=== PATIENT | female | born 1990 | race Caucasian/White ===

== ENCOUNTER 2019-09-21 21:53 | Emergency (ER) | payer SELFPAY ==
[~2019-09-21] VITALS: Ht 162.6 cm; Wt 54.4 kg
[2019-09-21 22:10] VITALS: BP 132/80
--- NOTE | 2019-09-21 22:10 | NUR ---
ED Nurse Note: Patient brought in by [employer] d/t medical clearance, patient aao x 4 and ambulatory, restless and uncooperative. Patient stable upon assessment. unable to obtain further information d/t patient declines to cooperate.
--- NOTE | 2019-09-21 22:14 | NUR ---
ED Nurse Note: ERMD at bedside.
[2019-09-21 22:15] VITALS: BP 128/82
--- NOTE | 2019-09-21 22:15 | NUR ---
ER DISCHARGE NOTE: Patient is medically cleared to be discharged per ERMD, pt is aox4, on room air, with stable vital signs. [employer] officer was given dc instructions, verbalized understanding. pt wheeled out in wheelchair accompanied by [employer] officers. [employer] took all belongings, pt stable upon discharge.
--- NOTE | 2019-09-21 22:19 | Emergency Room Report ---
History of Present Illness General Chief Complaint: Medical Clearance Source: Patient, Law Enforcement Present Illness HPI This is an approximately 29-year-old female brought in by police for medical clearance. She is not cooperative and would not give her name. She complaining of knee pain and internal pain. Patient refused to give her name or being cooperative. She is cursing and yelling obscenities to motorcycle police , nursing staff and myself. She walked without any problem. She was in the process of being arrested and she wrapped itself around the motorcycle police and try to bite that officer. In the process she was tackled to the ground and handcuffed. Allergies: Coded Allergies: PENICILLINS (Verified Allergy, Unknown, 09/21/19) COVID-19 Screening Contact w/high risk pt: No Recent Travel to affected area: No Experienced COVID-19 symptoms?: No Patient History Past Medical History: see triage record, old chart reviewed, unable to obtain Past Surgical History: unable to obtain Pertinent Family History: unable to obtain Last Menstrual Period: UNK Now: No Immunizations: other Reviewed Nursing Documentation: PMH: Agreed; PSxH: Agreed Nursing Documentation-PMH Past Medical History Deferred: Pt Cognitively Impaired Review of Systems Eye: Denies: eye pain, blurred vision ENT: Denies: ear pain, nose congestion, throat swelling Respiratory: Denies: cough, shortness of breath Cardiovascular: Denies: chest pain, palpitations Gastrointestinal: Denies: abdominal pain, diarrhea, nausea, vomiting Musculoskeletal: Denies: back pain, joint pain Skin: Denies: rash Neurological: Denies: headache, numbness Endocrine: Denies: increased thirst, increased urine Hematologic/Lymphatic: Denies: easy bruising All Other Systems: negative except mentioned in HPI Physical Exam Vital Signs Date Time Temp Pulse Resp B/P (MAP) Pulse Ox O2 Delivery O2 Flow Rate FiO2 09/21/19 22:00 97.9 86 18 133/76 (95) 99 Room Air Vitals normal Sp02 EP Interpretation: reviewed, normal General Appearance: well appearing, no apparent distress, alert Head: normocephalic, atraumatic Eyes: bilateral eye PERRL, bilateral eye EOMI ENT: hearing grossly normal, normal pharynx Neck: full range of motion, supple, no meningismus Respiratory: chest non-tender, lungs clear, normal breath sounds Cardiovascular #1: regular rate, rhythm, no murmur Gastrointestinal: normal bowel sounds, non tender, no mass, no organomegaly, no bruit, non-distended Musculoskeletal: back normal, normal range of motion, gait/station normal, other - No abrasions on her knees Psychiatric: mood/affect normal Medical Decision Making Diagnostic Impression: Primary Impression: Behavior disorder Additional Impression: Examination, medicolegal reason ER Course Patient here for medical clearance. She is belligerent and not cooperative. There is no evidence of any injury. Will discharge to motorcycle police. Last Vital Signs Date Time Temp Pulse Resp B/P (MAP) Pulse Ox O2 Delivery O2 Flow Rate FiO2 09/21/19 22:10 90 18 Room Air 09/21/19 22:10 97.9 132/80 99 Status: unchanged Disposition: LAW ENFORCEMENT IN CUST Condition: Stable Referrals: NOT CHOSEN IPA/,REFERRING (PCP) Additional Instructions: Abstain from drugs and alcohol. Follow-up with your doctor as needed. Return if worse. Amol Osuna MD September 21, 2019 22:19
== END 2019-09-21 22:15 ==
LOC: EMR 22:01
DX: Z02.89 Encounter for other administrative examinations (principal); F91.9 Conduct disorder, unspecified; Z88.0 Allergy status to penicillin
CPT/HCPCS: 99281